=== PATIENT | male | born 1945 | race Caucasian/White ===

== ENCOUNTER → 2017-01-13 | Outpatient (CLI) | payer MEDICARE | END | disposition home or self-care (01) | LOC: PCVCCLINIC 13:37 | PROVIDERS: ATTEND Internal Medicine Cardiovascular Disease | DX: I10 Essential (primary) hypertension (principal); I25.10 Atherosclerotic heart disease of native coronary artery without angina pectoris; E78.00 Pure hypercholesterolemia, unspecified; I73.9 Peripheral vascular disease, unspecified; I65.29 Occlusion and stenosis of unspecified carotid artery | CPT/HCPCS: G0463 ==

== ENCOUNTER → 2017-04-07 | Outpatient (CLI) | payer MEDICARE, OTHER ==
--- NOTE | 2017-04-07 12:31 | PCVCIMAG ---
EXAM: BILATERAL CAROTID DUPLEX INDICATION: Carotid Occlusive Disease. FINDINGS: Doppler Measurements (centimeters per second): RIGHT: Peak CCA-81, Peak ECA-157, Diastolic ICA-47, Peak ICA-133, ICA/CCA Ratio-1.6. LEFT: Peak CCA-67, Peak ECA-244, Diastolic ICA-107, Peak ICA-371, ICA/CCA Ratio-5.5. RIGHT CAROTID: The carotid bulb has moderate plaque. The proximal internal carotid artery shows 40-50% stenosis. The common carotid artery shows no significant stenosis. The external carotid artery shows 50% stenosis. LEFT CAROTID: The carotid bulb has moderately severe plaque. The proximal internal carotid artery shows greater than 90% stenosis. The common carotid artery shows no significant stenosis. The external carotid artery shows 70% stenosis. Antegrade flow in both vertebral arteries. Note is made of high-grade stenosis or occlusion of the proximal left vertebral artery IMPRESSION: 40-50% stenosis of the right internal carotid artery with moderate plaque. Greater than 90% stenosis of the left internal carotid artery with moderate severe plaque. LOC:[id number]
== END | disposition home or self-care (01) ==
LOC: PCVCIMAG 11:38
PROVIDERS: ATTEND Internal Medicine Cardiovascular Disease
DX: I65.23 Occlusion and stenosis of bilateral carotid arteries (principal)
CPT/HCPCS: 93880

== ENCOUNTER → 2017-04-08 | Outpatient (CLI) | payer MEDICARE, OTHER | END | disposition home or self-care (01) | LOC: PCVCCLINIC 16:20 | PROVIDERS: ATTEND Internal Medicine Cardiovascular Disease | DX: Z01.812 Encounter for preprocedural laboratory examination (principal); I65.23 Occlusion and stenosis of bilateral carotid arteries | CPT/HCPCS: 36415; 85610 ==

== ENCOUNTER → 2017-04-15 | Outpatient (CLI) | payer MEDICARE, OTHER ==
[~2017-04-15] MED LIST: DIAZEPAM 10 MG TABLET. ONE; IOHEXOL 300 MG/ML 100ML VIAL. ONE; IV NORMAL SALINE 1000ML BAG 1,000 ML ONE; LIDOCAINE 1% Multi-Dose 20 ML VIAL. ONE; MIDAZOLAM HCL/PF 2 MG/2 ML VIAL. ONE; fentaNYL PF VIAL 100 MCG/2 ML VIAL ONE
--- NOTE | 2017-04-16 | PCVCINTER ---
EXAM: 1 CERVICOEPHALIC ARCH AORTOGRAM 2 BILATERAL CAROTID ANGIOGRAPHY 3 LEFT VERTEBROBASILAR ANGIOGRAPHY 4 BILATERAL RENAL ANGIOGRAPHY 5 BILATERAL ILIOFEMORAL ANGIOGRAPHY INDICATION: Carotid occlusive disease. Left subclavian steal. Hypertension. Renal atherosclerosis. Peripheral arterial disease PROCEDURE: Procedure and risks of the procedures listed above were discussed with the patient and consent obtained. Risks including but not limited to bleeding, infection, stroke, vascular injury, neurologic injury, embolization, allergic reactions, and contrast-induced nephropathy requiring dialysis were discussed as appropriate and consent obtained. Patient was placed on the angiography table. IV conscious sedation was utilized with appropriate monitoring for 60 minutes. The left groin was prepped and draped in the normal sterile fashion. Ultrasound was used to interrogate the left groin and demonstrate the left common femoral artery. An ultrasound image was saved. Under ultrasound guidance a 21 gauge needle was used to gain access into the left common femoral artery and a 6F vascular sheath was placed. Catheter was placed into the ascending aorta and cervicocephalic aortic arch angiogram performed. Catheter was placed into the suprarenal abdominal aorta and abdominal aortic angiogram performed. Catheter was placed into the distal aorta and bilateral iliofemoral angiography performed. Catheter was placed into the right common carotid artery and right common carotid angiogram performed. Catheter was placed into the left common carotid artery and left common carotid angiogram performed. Catheter was placed into the left subclavian artery and left vertebro-basilar angiogram performed. Catheter was placed into the right subclavian artery and right vertebral basilar angiography performed. Catheter was placed into the right renal artery and right renal angiogram performed. Catheter was placed into the left renal artery and left renal angiogram performed. Catheters and wires were removed and hemostasis obtained using manual pressure. No immediate complications. FINDINGS: Cervicocephalic arch aortogram: The origins of the great vessels are patent. There is occlusion of the cervical left vertebral artery. Mild stenosis at the origin the right vertebral artery which is the dominant vertebral artery. Right common carotid angiogram: This injection fills the right and left middle and anterior cerebral distribution which are unremarkable. Minimal plaque proximal internal carotid artery. The internal carotid, external carotid, and common carotid arteries are patent. Left common carotid angiogram: Large plaque at the origin of the internal carotid artery results in 85% stenosis. External carotid artery is patent. Common carotid artery is patent. The left carotid injection fills the left middle cerebral distribution which is otherwise unremarkable. Left vertebrobasilar angiogram: The cervical left vertebral artery is occluded. The upper left vertebral artery is small but refills with faint flow seen into the basilar artery. Right vertebrobasilar angiogram: The cervical vertebral artery is patent. The basilar artery and both posterior cerebral arteries are patent. Right renal angiogram: Mild plaque proximal vessel does not cause significant stenosis. No branch vessel stenosis. Left renal angiogram: Mild stenosis proximal vessel does not cause significant stenosis. Mild stenosis at the origin of the inferior branch. Bilateral iliofemoral angiogram: Chronic occlusion of the right common and external iliac arteries. The left common and external iliac arteries show scattered plaque without evidence of flow-limiting stenosis. The left internal iliac artery is widely patent and provides collaterals to refill the right common femoral artery. The left common femoral and profunda femoral arteries as well as the left upper superficial femoral artery are patent. IMPRESSION: 85% stenosis at the origin the left internal carotid artery. No significant right carotid stenosis. Unchanged chronic occlusion cervical left vertebral artery. 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 LOC:OFFICE
== END | disposition home or self-care (01) ==
LOC: PCVCINTER 07:38
PROVIDERS: ATTEND Nuclear Medicine Nuclear Cardiology
DX: I70.201 Unspecified atherosclerosis of native arteries of extremities, right leg (principal); I25.10 Atherosclerotic heart disease of native coronary artery without angina pectoris; I70.1 Atherosclerosis of renal artery; I10 Essential (primary) hypertension; G45.8 Other transient cerebral ischemic attacks and related syndromes
CPT/HCPCS: 36223; 36225; 36252; 75630; 76937; 99152; 99153; C1751; C1769; C1894; J2250; J3010; J7030; Q9967

== ENCOUNTER → 2017-10-25 | Outpatient (CLI) | payer MEDICARE, OTHER ==
[~2017-10-25] MED LIST changes: -DIAZEPAM 10 MG TABLET. ONE; -IOHEXOL 300 MG/ML 100ML VIAL. ONE; -IV NORMAL SALINE 1000ML BAG 1,000 ML ONE; -LIDOCAINE 1% Multi-Dose 20 ML VIAL. ONE; -MIDAZOLAM HCL/PF 2 MG/2 ML VIAL. ONE; +REGADENOSON 0.4 MG/5 ML DISP.SYRIN. IV; -fentaNYL PF VIAL 100 MCG/2 ML VIAL ONE
== END | disposition home or self-care (01) ==
LOC: PCVCIMAG 08:26
DX: I65.23 Occlusion and stenosis of bilateral carotid arteries (principal); I73.9 Peripheral vascular disease, unspecified; E78.5 Hyperlipidemia, unspecified; I10 Essential (primary) hypertension; Z95.1 Presence of aortocoronary bypass graft; Z87.891 Personal history of nicotine dependence
CPT/HCPCS: 78452; 93017; 93880; A9500; J2785

== ENCOUNTER → 2018-03-28 | Outpatient (CLI) | payer MEDICARE, OTHER | END | disposition home or self-care (01) | LOC: PCVCCLINIC 14:34 | DX: I25.10 Atherosclerotic heart disease of native coronary artery without angina pectoris (principal); I10 Essential (primary) hypertension; I65.23 Occlusion and stenosis of bilateral carotid arteries; I73.9 Peripheral vascular disease, unspecified; E78.5 Hyperlipidemia, unspecified; R94.31 Abnormal electrocardiogram [ECG] [EKG]; Z98.890 Other specified postprocedural states; Z88.8 Allergy status to other drugs, medicaments and biological substances | CPT/HCPCS: 80061; 93005; G0463 ==

== ENCOUNTER → 2018-08-24 | Outpatient (CLI) | payer MEDICARE, OTHER | END | disposition home or self-care (01) | LOC: PCVCCLINIC 12:49 | PROVIDERS: ATTEND Internal Medicine Cardiovascular Disease | DX: I25.10 Atherosclerotic heart disease of native coronary artery without angina pectoris (principal); R07.89 Other chest pain; I10 Essential (primary) hypertension; E78.00 Pure hypercholesterolemia, unspecified; I73.9 Peripheral vascular disease, unspecified; I65.22 Occlusion and stenosis of left carotid artery; E78.5 Hyperlipidemia, unspecified; E03.9 Hypothyroidism, unspecified; Z95.1 Presence of aortocoronary bypass graft; Z98.890 Other specified postprocedural states; Z79.899 Other long term (current) drug therapy; Z87.891 Personal history of nicotine dependence | CPT/HCPCS: 80061; 93005; G0463 ==

== ENCOUNTER → 2018-11-20 | Outpatient (CLI) | payer MEDICARE, OTHER | END | disposition home or self-care (01) | LOC: PCVCCLINIC 12:05 | PROVIDERS: ATTEND Internal Medicine Cardiovascular Disease | DX: I25.10 Atherosclerotic heart disease of native coronary artery without angina pectoris (principal); I10 Essential (primary) hypertension; E78.00 Pure hypercholesterolemia, unspecified; I65.23 Occlusion and stenosis of bilateral carotid arteries; Z98.890 Other specified postprocedural states; Z95.1 Presence of aortocoronary bypass graft | CPT/HCPCS: 93005; G0463 ==

== ENCOUNTER → 2019-07-17 | Outpatient (CLI) | payer MEDICARE ==
--- NOTE | 2019-07-17 12:19 | PCVCIMAG ---
APPROVED REPORT Study performed: 07/17/2019 10:30:42 Exam: Stress Echocardiogram Indication: CAD s/p CABG Patient Location: Echo lab Stress Nurse: Juliet Walden RN Room #: 2 Status: routine Ht: 6 ft 4 in HR: 58 bpm BP: 132/84 mmHg Rhythm: RBBB Medical History Medical History: CAD s/p CABG, Tobacco history (Former), HTN Cardiac Risk Factors: HTN, Tobacco History (Former) Previous Cardiac Procedures: CABG,PCI Pretest Chest Pain Characteristics: No chest pain Exercise History: Indeterminate Procedure The patient underwent an Exercise Stress Test using the Abrahan Protocol. Blood pressure, heart rate, and EKG were monitored. An Echocardiogram was performed by astro technician in four stages in quad fashion. At peak stress, four selected images were obtained and placed side by side with resting images for comparison. Stress Test Details Stress Test: Exercise stress testing was performed using a Abrahan protocol. HR Resting HR: 58 bpmMax Heart Rate (APMHR): 146 bpm Max HR Achieved: 105 bpmTarget HR (85% APMHR): 124 bpm % of APMHR: 71 Recovery HR: 62 bpm HR response to stress: Blunted HR response to stress- patient on Bystolic BP Resting BP: 132/84 mmHg Max BP: 184/80 mmHg Recovery BP: 142/72 mmHg BP response to stress: Normal blood pressure response to stress. ECG Resting ECG: RBBB Stress ECG: RBBB with frequent PVCs ST Change: Non-ischemic Maximum ST Deviation: -1.35 mm Arrhythmia: VPC's Recovery ECG: Sinus Rhythm, RBBB Recovery ST Change: Non-ischemic Recovery Arrhythmia: VPC Clinical Reason for Termination: Maximal effort Stress Symptoms: dyspnea, fatigue Exercise duration: 6 min 00 sec Highest Stage Achieved: Stage 2: 2.5 mph at 12% grade. Exercise capacity: 7.0 METs Overall Exercise Capacity for Age: Poor Scale: Active Angina Score: None No complications. Stress ECG Conclusion The patient exercised according to the ABRAHAN protocol for 6:00 mins; achieving a work level of 7.0 METS. The resting heart rate of 58 bpm jose to a maximum heart rate of 105 bpm. This value represents 71 % of the maximal, age-predicted heart rate. The resting blood pressure of 132/84 mmHg, jose to a maximum blood pressure of 184/80 mmHg. The exercise test was stopped due to dyspnea and fatigue . Huntley Treadmill Score is 12.8 which is Low risk. Pre-Stress Echo The resting Echocardiogram showed normal left ventricular contractility with an estimated Ejection Fraction of about 55-60%. Septal wall motion abnormality consistent with post CABG is seen Post-Stress Echo The stress Echocardiogram showed normal left ventricular contractility with an estimated Ejection Fraction of about 60-65%. Conclusion Clinical Response: Indeterminant Exercise Capacity: Below Average Stress ECG Response: Equivocal Stress Echo Images: Indeterminant Normal stress echocardiogram with submaximal exercise stress. Normal color doppler. No regurgitation or stenosis present on pulmonic, mitral, tricuspid or aortic valves. <Conclusion> Normal stress echocardiogram with submaximal exercise stress. Normal color doppler. No regurgitation or stenosis present on pulmonic, mitral, tricuspid or aortic valves.
== END | disposition home or self-care (01) ==
LOC: PCVCIMAG 10:08
PROVIDERS: ATTEND Internal Medicine Cardiovascular Disease
DX: I25.10 Atherosclerotic heart disease of native coronary artery without angina pectoris (principal); E78.00 Pure hypercholesterolemia, unspecified; I10 Essential (primary) hypertension; Z95.1 Presence of aortocoronary bypass graft; Z88.8 Allergy status to other drugs, medicaments and biological substances
CPT/HCPCS: 93325; 93351